=== PATIENT | female | born 1995 | race Caucasian/White ===

== ENCOUNTER 2021-08-07 09:25 | Inpatient (IN) | payer BC ==
[~2021-08-07 09:25] MED LIST: Bupivacaine 0.25% 10 ML SDV ONE
[2021-08-07] MEDS ORDERED: Ondansetron 4 MG/2 ML SDV IVPUSH PRN (09:36)
[2021-08-07] MEDS ORDERED: Nalbuphine 10 MG/1 ML Vial IVPUSH PRN (09:36)
[2021-08-07] MEDS ORDERED: Calcium Carbonate 500 MG Tab.Chew PO PRN (09:36)
[2021-08-07] MEDS ORDERED: Sodium Chloride 0.9% 10 ML Syringe FLUSH PRN (09:36)
[2021-08-07] MEDS ORDERED: Oxytocin/Lactated Ringers 10 UNIT/1,000 ML BAG IV SCH ×2 (09:45)
[2021-08-07] MEDS: Lactated Ringers 1,000 ML IV SCH ×2 (10:48→16:37)
[2021-08-07] MEDS ORDERED: diphenhydrAMINE 50 MG/ML SDV IVPUSH PRN (12:15)
[2021-08-07] MEDS ORDERED: ePHEDrine 50 MG/ML SDV IVPUSH PRN (12:15)
[2021-08-07] MEDS ORDERED: fentaNYL 100 MCG/2 ML SDV EPIDUR PRN (12:15)
[2021-08-07] MEDS ORDERED: Bupivacaine/fentaNYL/NS 100 ML Bag EPIDUR PRN (12:15)
[2021-08-07] MEDS ORDERED: Witch Hazel Medicated Pads 40/Jar TOP PRN (20:13)
[2021-08-07] MEDS ORDERED: Docusate Sodium 100 MG Cap PO PRN (20:13)
[2021-08-07] MEDS ORDERED: Benzocaine/Menthol 20%-0.5% Spray 78 GM Cannister TOP PRN (20:13)
[2021-08-07] MEDS ORDERED: Acetaminophen 325 MG Tab PO PRN (20:13)
[2021-08-07] MEDS ORDERED: Sodium Chloride 0.9% 10 ML Syringe FLUSH SCH (21:00)
[2021-08-08] MEDS: Ibuprofen 600 MG Tab PO PRN ×2 (03:53→10:03)
[2021-08-09] MEDS ORDERED: Bupivacaine/fentaNYL/NS 100 ML Bag ONE (04:06)
[2021-08-09] MEDS ORDERED: fentaNYL 100 MCG/2 ML SDV ONE (04:06)
[2021-08-09] MEDS: Ibuprofen 600 MG Tab PO PRN (05:10)
== END 2021-08-09 09:54 | disposition home or self-care (01) | DRG 560 ==
LOC: JD.OB 09:25 → INTOOBSV 09:36 → OBSVTOIN 09:36 → JD.OB 19:14
PROVIDERS: ADMIT Obstetrics & Gynecology; ATTEND Obstetrics & Gynecology
PROC: 10E0XZZ Delivery of Products of Conception, External Approach (ICD-10-PCS; principal; 2021-08-07)
PROC: 0UQMXZZ Repair Vulva, External Approach (ICD-10-PCS; 2021-08-07)
PROC: 3E0R3BZ Introduction of Anesthetic Agent into Spinal Canal, Percutaneous Approach (ICD-10-PCS; 2021-08-07)
DX: O69.81X0 Labor and delivery complicated by cord around neck, without compression, not applicable or unspecified (principal); O71.82 Other specified trauma to perineum and vulva; Z20.822 Contact with and (suspected) exposure to COVID-19; Z3A.38 38 weeks gestation of pregnancy; Z37.0 Single live birth; Z91.011 Allergy to milk products; Z91.010 Allergy to peanuts; Z87.891 Personal history of nicotine dependence
CPT/HCPCS: 01967; 36415; 51702; 59025; 59409; 85027; 86592; 86850; 86900; 86901; A9270-GY; J2590; J3010; J3490; J7120; U0002